=== PATIENT | male | born 1975 | race Two or more races ===

== ENCOUNTER 2016-12-11 12:13 | Inpatient (IN) | payer OTHER ==
[2016-12-11] VITALS (22 sets, daily range): BP systolic 107–198; BP diastolic 61–131
[~2016-12-11] VITALS: Ht 170.2 cm; Wt 74.2 kg
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
[2016-12-11] MEDS ORDERED: IV NS 0.9% 1,000 ML BAG IV ONE (12:30)
--- NOTE | 2016-12-11 12:30 | NUR ---
PT IS INTUBATED FOR AIRWAY PROTECTION. INTUBATED BY MARK SANCHEZ WITH 7.5 MM ETT SECURED @ 23 CM CORNER OF THE LIPS. CO2 DETECTOR CHANGED IN GOLD COLOR. CLEAR BILATERAL BREATH SOUNDS WITH SYMMETRICAL CHEST RISE EACH MANUAL RESUSCITATION. APPEARS MOISTURE CONDENSATION IN ETT. VENT PARAMETERS BELOW SET PER RT DRIVEN PROTOCOL: AC 16 VT 500 FIO2 60% PEEP +5 Addendum: 12/11/16 at 1255 by NASEEM FUNES RT Amended: Links added.
--- NOTE | 2016-12-11 12:30 | NUR ---
MECH VENT 7.5 ETT @23 CM . C 16 TV 500 FIO2 60% PEEP +5
[2016-12-11 12:52] LABS: BASOPHILS # (AUTO) 0.3 /CMM (0.0-0.2); BASOPHILS % (AUTO) 2.3 % (0.0-2.0); EOSINOPHILS # (AUTO) 0.1 /CMM (0.0-0.7); EOSINOPHILS % (AUTO) 0.9 % (0.0-6.0); HEMATOCRIT 41 % (39-51); HEMOGLOBIN 13.5 g/dL (13.5-17.5); LYMPHOCYTES # (AUTO) 4.4 /CMM (0.8-4.8); LYMPHOCYTES % (AUTO) 33.3 % (20.0-44.0); MEAN CORPUSCULAR HEMOGLOBIN 26 PG (26.0-33.0); MEAN CORPUSCULAR HGB CONC 33 g/dl (31.0-36.0); MEAN CORPUSCULAR VOLUME 80 fL (80-96); MONOCYTES # (AUTO) 0.4 /CMM (0.1-1.30); MONOCYTES % (AUTO) 2.9 % (2.0-12.0); NEUTROPHILS % (AUTO) 60.6 % (43.0-81.0); PLATELET COUNT (AUTO) 361 /CMM (150-450); RDW COEFFICIENT OF VARIATION 13.4 (11.5-15.0); RED BLOOD CELL COUNT(AUTO) 5.17 MIL/uL (4.5-6.0); WHITE BLOOD COUNT (AUTO) 13.2 K/uL (4.3-11.0)
[2016-12-11] MEDS ORDERED: ETOMIDATE 2 MG/ML VIAL IV ONE (13:00)
[2016-12-11] MEDS ORDERED: PROPOFOL 100 ML IV ONE (13:00)
[2016-12-11] MEDS ORDERED: ROCURONIUM BROMIDE 100 MG/10 ML VIAL IV ONE (13:00)
[2016-12-11 13:01] LABS: INR 1.07 (0.87-1.13); PROTHROMBIN TIME 11.1 SECS (9.5-12.7)
[2016-12-11 13:03] LABS: ALANINE AMINOTRANSFERASE 24 U/L (12-78); ALBUMIN 2.8 g/dL (3.4-5.0); ALKALINE PHOSPHATASE 57 U/L (46-116); ASPARTATE AMINOTRANSFERASE 28 U/L (15-37); BILIRUBIN,TOTAL 0.4 mg/dL (0.2-1.0); CALCIUM, SERUM 7.8 mg/dL (8.5-10.1); CARBON DIOXIDE 20 mmol/L (21-32); CHLORIDE 110 mmol/L (98-107); CREATININE 0.9 mg/dL (0.6-1.3); GFR 93 mL/min (>60); GLUCOSE 292 mg/dL (74-106); SODIUM SERUM 142 mmol/L (136-145); TOTAL PROTEIN, SERUM 5.5 g/dL (6.4-8.2); UREA NITROGEN, BLOOD 15 mg/dL (7-18)
[2016-12-11 13:05] LABS: TROPONIN I < 0.017 ng/mL (0.00-0.056)
[2016-12-11 13:11] LABS: POTASSIUM 2.1 mmol/L (3.5-5.1)
[2016-12-11] MEDS ORDERED: FENTANYL PF 100MCG/2ML AMPUL IV STA (13:28)
--- NOTE | 2016-12-11 13:28 | NUR ---
urine sample collected, send to lab.
[2016-12-11 13:29] LABS: LACTIC ACID 4.1 mmol/L (0.4-2.0)
[2016-12-11] MEDS ORDERED: FENTANYL PF 100MCG/2ML AMPUL ONE (13:29)
[2016-12-11] MEDS ORDERED: MIDAZOLAM HCL 2 MG/2ML VIAL ONE (13:29)
[2016-12-11] MEDS ORDERED: MIDAZOLAM HCL 2 MG/2ML VIAL IV ONE (13:30)
[2016-12-11] MEDS ORDERED: CEFEPIME 1 GM in IV D5W 50 ML IV ONE (13:30)
[2016-12-11] MEDS: POTASSIUM CL. PREMIX PERIPHER. 50 ML IV SCH ×6 (13:30→17:33)
[2016-12-11] MEDS ORDERED: VANCOMYCIN 1 GM in IV D5W 250 ML IV ONE (13:30)
--- NOTE | 2016-12-11 13:30 | NUR ---
PT TAKEN TO CT SCAN VIA GURNEY VIA ACLS PROTOCOL RN AND RT WITH PT.
[2016-12-11 13:32] LABS: APPEARANCE,URINE Clear (CLEAR); BILIRUBIN,URINE Negative (NEGATIVE); BLOOD, URINE Negative Ery/uL (NEGATIVE); COLOR,URINE Yellow (YELLOW); KETONES,URINE Negative (NEGATIVE); LEUKOCYTE ESTERASE ,URINE Negative (NEGATIVE); NITRITE, URINE Negative (NEGATIVE); PH,URINE 5.5 (5.0-8.0); PROTEIN,URINE 30 mg/dl (NEGATIVE); UGLUCOSE 250 MG/DL mg/dL (NEGATIVE); UROBILINOGEN,URINE 0.2 EU/dL (0.2)
[2016-12-11 13:41] LABS: ADD URINE CULTURE NO; BACTERIA,URINE Rare /HPF (None Seen); RBC,URINE 0-2 /HPF (0-2); SQUAMOUS EPITHELIAL CELL,UR Rare /HPF (None Seen); WBC,URINE 0-2 /HPF (0-3)
--- NOTE | 2016-12-11 13:48 | NUR ---
PAGED MANAGING CONSULTANT TUTU FINCH
[2016-12-11] MEDS ORDERED: DEXAMETHASONE SOD PHOSPHATE 10 MG/ML VIAL IV STA (14:02)
[2016-12-11] MEDS ORDERED: POTASSIUM CL. PREMIX PERIPHER. 50 ML ONE (14:20)
--- NOTE | 2016-12-11 14:21 | NUR ---
GAVE REPORT TO DWAIN HARDING ICU [address] DR MCKINNEY ADMITTING. TRANSPORT VIA ACLS PROTOCOL W RT AND RN
[2016-12-11] MEDS ORDERED: FAMOTIDINE/PF INJ 20 MG/2 ML VIAL IV STA (14:24)
[2016-12-11 14:27] LABS: ABG BASE EXCESS -6.9 mmol/L; ABG OXYGEN SATURATION 98.4 % (92.0-98.5); ABG PCO2 43.6 mmHg (35.0-45.0); ABG PH 7.273 (7.350-7.450); ABG PO2 314.1 mmHg (75.0-100.0); ABG TOTAL HEMOGLOBIN 12.7 G/dL (13.5-18.0); AaDO2 65.7 mmHg; COHb 0.3 % (0.5-1.5); MetHb 0.3 % (0.0-1.5); O2Hb 97.8 % (94.0-97.0); PEEP,BG 5 cm H2O; SITE, ABG Right Femoral; VT, ABG 500 mL
[2016-12-11] MEDS ORDERED: EPINEPHRINE (1:1000) MDV 30 MG/30ML VIAL SUBCUT ONE (14:30)
[2016-12-11] MEDS ORDERED: diphenhydrAMINE HCL 50 MG/ML VIAL IV ONE (14:30)
[2016-12-11] MEDS ORDERED: FAMOTIDINE/PF INJ 40 MG in IV D5W 250 ML IV ONE (14:30)
--- NOTE | 2016-12-11 14:35 | NUR ---
ICU/RN: PT RECEIVED VIA GURNEY, INTUBATED, ON DIPRIVAN 15 MCG/MIN, PT AWAKE, GAG REFLEX PRESENT, ATTEMPTING TO SELF EXTUBATE AND PULL LINES. TRANSFERRED TO BED; SKIN AX PERFORMED, NO BEE STINGER REMAINS ON PT. L SIDED SWELLING NOTED WITH 2 PINPOINT SCABS NOTED AROUND L EYE. ANGIOEDEMA NOTED. AIRWAY CLEARED OF THICK CLEAR SECRETIONS. FOR FULL NSG ASSESSMENT REFER TO FLOWSHEET. MARCELLA FINCH NP PAGED FOR ORDERS.
--- NOTE | 2016-12-11 14:42 | NUR ---
DECREASED FIO2 FROM 60% TO 40% DUE TO PAO2 314MMHG. Addendum: 12/11/16 at 1448 by NASEEM FUNES RT Amended: Links added.
--- NOTE | 2016-12-11 14:48 | NUR ---
TRANSFERRED FROM ER#5 TO ICU#257 PT USED SAME [facility] VENT WITH ALARMS ON AND AUDIBLE. VENT PLUGGED INTO RED OUTLET wITH AMBUBAG @ BEDSIDE. Addendum: 12/11/16 at 1449 by NASEEM FUNES RT Amended: Links added.
[2016-12-11] MEDS ORDERED: PROPOFOL 100 ML IV PRN (15:30)
[2016-12-11] MEDS ORDERED: Sodium Bicarbonate 100 MEQ in IV D5W 1,000 ML IV PRN (15:30)
[2016-12-11] MEDS ORDERED: IV SET PRIMARY PUMP SET 1 EA INFUS.SET MC ONE ×2 (15:31→22:33)
[2016-12-11 15:54] LABS: CANNABINOID, URINE NEGATIVE (NEGATIVE); PHENCYCLIDINE SCREEN,URINE NEGATIVE (NEGATIVE)
--- NOTE | 2016-12-11 16:25 | NUR ---
ICU/RN: MARCELLA FINCH, TELEHEALTH COORDINATOR AT THE BEDSIDE. UPDATED ON PT STATUS, PER TELEHEALTH COORDINATOR OK TO CONTINUE ER POTASSIUM REPLACEMENT ORDERS. LABS AND IMAGING DISCUSSED. NEW ORDERS NOTED AND CARRIED OUT
[2016-12-11] MEDS: PROPOFOL 100 ML IV PRN ×3 (16:28→22:55)
[2016-12-11] MEDS ORDERED: PANTOPRAZOLE 40 MG VIAL IV SCH (16:30)
[2016-12-11] MEDS ORDERED: ONDANSETRON HCL/PF 4 MG/2 ML VIAL IVP PRN (16:30)
[2016-12-11] MEDS ORDERED: MAG HYDROX/AL HYDROX/SIMETH 30 ML UDC PO PRN (16:30)
[2016-12-11] MEDS ORDERED: ACETAMINOPHEN 325 MG TABLET PO PRN (16:30)
[2016-12-11] MEDS ORDERED: DEXTROSE 50%-WATER 50 ML DISP.SYRIN IV PRN (16:30)
[2016-12-11] MEDS ORDERED: HYDROCODONE/APAP 5/325MG 1 EACH TABLET PO PRN (16:30)
[2016-12-11] MEDS ORDERED: ENOXAPARIN SODIUM 40 MG/0.4 ML DISP.SYRIN SQ SCH ×2 (16:30→21:00)
[2016-12-11] MEDS ORDERED: MAGNESIUM HYDROXIDE 30 ML UDC PO PRN (16:30)
[2016-12-11] MEDS ORDERED: ZOLPIDEM TARTRATE 5 MG TABLET PO PRN (16:30)
[2016-12-11] MEDS: methylPREDNISolone SOD SUCC 40 MG/ML VIAL IV SCH (16:44)
[2016-12-11] MEDS: IV NS 0.9% 1,000 ML IV PRN ×2 (16:44→22:55)
[2016-12-11] MEDS: BLOOD SUGAR DIAGNOSTIC 1 EACH STRIP IN SCH ×2 (17:00→23:00)
--- NOTE | 2016-12-11 18:51 | NUR ---
Patient was admitted as Alex Kline intubated/vent ICU status. Met with patient Madhuri [phone] and dtr Lynette [phone]. Patient demographic info was updated, prior to admission, patient was ambulatory and independent with adl's. He lives locally with his family. He works in [employer], his family are involved and supportive. We will assess for dc planning needs when stable. Addendum: 12/11/16 at 1852 by ART LEOS RN Amended: Links added.
--- NOTE | 2016-12-11 19:15 | NUR ---
COMMERCIAL UNDERWRITER RCD PT W/DX ANAPHYLACTIC SHOCK; PT IS SEDATED ON DIPRIVAN 60 MCG/KG/MIN ON BL SOFT WRIST RESTRAINTS; PT IS NOTED TO BE WAKING UP AND NOT FOLLOWING DIRECTION TO NOT PULL ET TUBE AND LINES. NSR ON MONITOR. LUO CATHETER DRAINING YELLOW CLEAR URINE. RIGHT NARE NG TUBE CLAMPED. RIGHT IJ W/NS @ 150 ML/HR. RFA 18 G PATENT AND FLUSHING WELL. PT IS NPO. HOB ELEVATED. BED LOCKED AND IN LOW POSITION. CONTINUE TO MONITOR.
--- NOTE | 2016-12-11 19:15 | NUR ---
ICU/RN: PT IN BED, EYES CLOSED, AROUSABLE BY LIGHT PAIN, SEDATED ON DIPRIVAN INFUSING INTO R IJ, VENT SET TO ORDERED SETTINGS, TOLERATING WELL. DRESSING C/D/I, NO BLEEDING NOTED. FC DRAINING WELL TO GRAVITY. CARE ENDORSED TO PM RN FOR MANDY.
--- NOTE | 2016-12-11 19:25 | NUR ---
ICU/RN: PT SITTING IN BED, NO S/S ACUTE DISTRESS, BREATHING EVEN AND UNLABORED. TOLERATED DINNER WELL, ATE 75% OF MEAL. MARLENE ML PATENT AND INTACT. CARE ENDORSED TO PM RN FOR MANDY. Addendum: 12/11/16 at 1926 by SOUMYA CELESTIN RN WRONG ENTRY
--- NOTE | 2016-12-11 19:30 | NUR ---
PROCEDURES RN PT CONTINUES TO BE AGITATED AND ATTEMPTING TO PULL ET TUBE; DIPRIVAN INCREASED TO 80 MCG/KG/MIN. CONTINUE TO MONITOR.
[2016-12-11] MEDS: LORAZEPAM INJ 2 MG/ML VIAL IV PRN (19:54)
--- NOTE | 2016-12-11 19:55 | NUR ---
PAIN MANAGEMENT NURSE AGITATION PT AWAKE; CONTINUES REACHING FOR ET TUBE DESPITE BEING ON DIPRIVAN AT 100 MCG/KG/MIN AND BL SOFT WRIST RESTRAINTS; PT DOES NOT FOLLOW COMMANDS TO STOP PULLING LINES AND ET TUBES; ATIVAN 1 MG IV GIVEN. CONTINUE TO MONITOR.
--- NOTE | 2016-12-11 20:15 | NUR ---
RESEARCH MECHANIC AND CHILDREN AT BEDSIDE; UPDATED ON PT CONDITION AND INFORMED THEM OF INCIDENT WITH PREVIOUS VISITOR. CONTINUE TO MONITOR.
[2016-12-11] MEDS: INSULIN REGULAR, HUMAN 100 UNIT/ML 3 ML VIAL SQ PRN (23:01)
--- NOTE | 2016-12-11 23:08 | NUR ---
THIRD STEEL POURER PT NOTED TO BE WAKING UP AGAIN DESPITE BEING ON DIPRIVAN AT 100 MCG/KG/MIN; BL SOFT WRIST RESTRAINTS REMAIN IN PLACE FOR SAFETY. CONTINUE TO MONITOR.
[2016-12-12] VITALS (58 sets, daily range): BP systolic 102–129; BP diastolic 52–89
[2016-12-12] MEDS: PROPOFOL 100 ML IV PRN ×10 (01:46→21:17)
[2016-12-12 04:39] LABS: BASOPHILS % (AUTO) 0.1 % (0.0-2.0); HEMATOCRIT 41 % (39-51); HEMOGLOBIN 12.8 g/dL (13.5-17.5); LYMPHOCYTES # (AUTO) 0.8 /CMM (0.8-4.8); LYMPHOCYTES % (AUTO) 5.3 % (20.0-44.0); MEAN CORPUSCULAR HEMOGLOBIN 26 PG (26.0-33.0); MEAN CORPUSCULAR HGB CONC 31 g/dl (31.0-36.0); MEAN CORPUSCULAR VOLUME 83 fL (80-96); MONOCYTES # (AUTO) 0.3 /CMM (0.1-1.30); MONOCYTES % (AUTO) 2.4 % (2.0-12.0); NEUTROPHILS # (AUTO) 13.4 /CMM (1.8-8.9); NEUTROPHILS % (AUTO) 92.2 % (43.0-81.0); PLATELET COUNT (AUTO) 232 /CMM (150-450); RDW COEFFICIENT OF VARIATION 14.7 (11.5-15.0); RED BLOOD CELL COUNT(AUTO) 4.87 MIL/uL (4.5-6.0); WHITE BLOOD COUNT (AUTO) 14.5 K/uL (4.3-11.0)
[2016-12-12 05:20] LABS: CALCIUM, SERUM 7.8 mg/dL (8.5-10.1); CREATININE 0.5 mg/dL (0.6-1.3); MAGNESIUM 1.8 mg/dL (1.8-2.4); PHOSPHORUS 4.2 mg/dL (2.5-4.9); POTASSIUM 4.3 mmol/L (3.5-5.1)
[2016-12-12] MEDS: IV NS 0.9% 1,000 ML IV PRN ×3 (06:11→18:37)
[2016-12-12] MEDS: BLOOD SUGAR DIAGNOSTIC 1 EACH STRIP IN SCH ×4 (06:11→23:37)
--- NOTE | 2016-12-12 07:10 | NUR ---
RN INITIAL NOTES RECEIVED PT SEDATED. INTUBATED, ON MECHANICAL VENT WITH FF SETTINGS: AC16, TV500, FI02 35%, PEEP+5. HON ELEVATED. NO RESPIRATORY DISTRESS NOTED. NO SOB NOTED. NO SIGNS OF PAIN NOTED. NGT, RIGHT NARE IN PLACE. RIJ AND RFA #[address] ON DIPRIVAN AT 100MCG/KG/MIN AND NS AT 150ML/HR. BILATERAL WRIST RESTRAINTS IN PLACE. NO CIRCULATORY IMPAIRMENT NOTED. GOOD CAPILLARY REFILL NOTED. FC IN PLACE. NO HEMATURIA NOR SEDIMENTS NOTED. BLE ELEVATED. WILL CONTINUE TO MONITOR
[2016-12-12] MEDS: methylPREDNISolone SOD SUCC 40 MG/ML VIAL IV SCH ×3 (08:28→16:18)
[2016-12-12 08:48] LABS: ABG BASE EXCESS -1.6 mmol/L; ABG OXYGEN SATURATION 98.2 % (92.0-98.5); ABG PCO2 38.2 mmHg (35.0-45.0); ABG PH 7.396 (7.350-7.450); ABG TOTAL HEMOGLOBIN 12.8 G/dL (13.5-18.0); AaDO2 55.1 mmHg; COHb 0.5 % (0.5-1.5); MetHb 0.4 % (0.0-1.5); O2Hb 97.3 % (94.0-97.0); PEEP,BG 5 cm H2O; SITE, ABG Right Radial; VT, ABG 500 mL
[2016-12-12] MEDS ORDERED: diphenhydrAMINE HCL 50 MG/ML VIAL IV PRN (10:30)
[2016-12-12] MEDS: FAMOTIDINE/PF INJ 20 MG/2 ML VIAL IV SCH ×2 (10:39→21:03)
[2016-12-12] MEDS: diphenhydrAMINE HCL 50 MG/ML VIAL IV SCH ×3 (10:39→21:06)
[2016-12-12] MEDS ORDERED: SECONDARY IV SET 1 EA INFUS.SET MC ONE (11:33)
[2016-12-12] MEDS: LORAZEPAM INJ 2 MG/ML VIAL IV PRN (11:38)
[2016-12-12] MEDS: CLINDAMYCIN 300 MG in IV D5W 50 ML IV SCH ×3 (12:22→23:35)
[2016-12-12] MEDS ORDERED: IV SET PRIMARY PUMP SET 1 EA INFUS.SET MC ONE ×2 (15:02→20:52)
--- NOTE | 2016-12-12 18:50 | NUR ---
RN CLOSING NOTES PT REMAINS INTUBATED. ON MECH VENT. TOLERATING WELL. NO RESPIRATORY DISTRESS NOTED. NO SIGNS OF PAIN NOTED. IV LINES IN PLACE. ON DIPRIVAN AT 100MCG/KG/MIN. TOLERATING IVF WELL. FC IN PLACE. ADEQUATE OUTPUT NOTED. KEPT CLEAN AND DRY. REPOSITIONED Q2. BLE ELEVATED. WILL ENDORSE FOR CONTINUITY OF CARE.
[2016-12-12] MEDS: ENOXAPARIN SODIUM 40 MG/0.4 ML DISP.SYRIN SQ SCH (21:04)
[2016-12-12] MEDS: INSULIN REGULAR, HUMAN 100 UNIT/ML 3 ML VIAL SQ PRN (23:36)
[2016-12-13] VITALS (36 sets, daily range): BP systolic 104–126; BP diastolic 63–81
[2016-12-13] MEDS: PROPOFOL 100 ML IV PRN ×4 (00:02→07:52)
[2016-12-13] MEDS: IV NS 0.9% 1,000 ML IV PRN ×4 (01:53→23:43)
--- NOTE | 2016-12-13 03:59 | NUR ---
MEDICAL SALES REPRESENTATIVE - RECEIVED PT. ON DIPRIVAN GTT. AT 100CC/HR. PT. CONT. AT SAME RATE. PT. IS VENTED & ON BILAT. SOFT WRIST RESTRAINTS. PT. RECEIVED A COMPLETE BEDBATH AT ONE AM. LUO CATH TO GRAVITY, W/GOOD UOP. MN BS WAS #129-NOT COVERED. RFA-PIC & RIJ-TL HAVE PORTS-ALL PATENT TO FLUSH. 0.9%NS IS INFUSING AT 150CC/HR.VIA COOPER PUMPS. RT. PEREZ NGT HAS GOOD PLACEMENT. SKIN INTACT. HEART MONITOR SHOWS SBP'S 104-120'S & SR/ST/NO ECTOPY. CHILO FROM MICRO/LAB PHONED IN PRELIM. RESULT:ANAEROBIC BC DONE 12/10/16 SHOWS GRAM + COCCI. NOTED. CONT.POC.
[2016-12-13] MEDS: diphenhydrAMINE HCL 50 MG/ML VIAL IV SCH (04:22)
[2016-12-13 05:01] LABS: BASOPHILS % (AUTO) 0.3 % (0.0-2.0); HEMATOCRIT 36 % (39-51); HEMOGLOBIN 11.6 g/dL (13.5-17.5); LYMPHOCYTES # (AUTO) 1.5 /CMM (0.8-4.8); LYMPHOCYTES % (AUTO) 13.4 % (20.0-44.0); MEAN CORPUSCULAR HEMOGLOBIN 26 PG (26.0-33.0); MEAN CORPUSCULAR HGB CONC 32 g/dl (31.0-36.0); MEAN CORPUSCULAR VOLUME 82 fL (80-96); MONOCYTES # (AUTO) 0.5 /CMM (0.1-1.30); MONOCYTES % (AUTO) 4.6 % (2.0-12.0); NEUTROPHILS # (AUTO) 9.3 /CMM (1.8-8.9); NEUTROPHILS % (AUTO) 81.7 % (43.0-81.0); PLATELET COUNT (AUTO) 207 /CMM (150-450); RDW COEFFICIENT OF VARIATION 15.2 (11.5-15.0); RED BLOOD CELL COUNT(AUTO) 4.39 MIL/uL (4.5-6.0); WHITE BLOOD COUNT (AUTO) 11.4 K/uL (4.3-11.0)
[2016-12-13 05:15] LABS: CALCIUM, SERUM 7.6 mg/dL (8.5-10.1); CREATININE 0.5 mg/dL (0.6-1.3); MAGNESIUM 2.1 mg/dL (1.8-2.4)
[2016-12-13] MEDS: INSULIN REGULAR, HUMAN 100 UNIT/ML 3 ML VIAL SQ PRN (05:34)
[2016-12-13] MEDS: CLINDAMYCIN 300 MG in IV D5W 50 ML IV SCH ×4 (05:34→23:43)
[2016-12-13] MEDS: BLOOD SUGAR DIAGNOSTIC 1 EACH STRIP IN SCH ×3 (05:35→17:21)
[2016-12-13] MEDS ORDERED: IV SET PRIMARY PUMP SET 1 EA INFUS.SET MC ONE (07:20)
--- NOTE | 2016-12-13 07:31 | NUR ---
SUPERVISOR CIGAR PROCESSING NOTE RCVD PT SEDATED ON DIPRIVAN, PUPILS PERRL, SR ON TELE. TOLERATING ORDERED VENT SETTINGS ETT 7.5 23 AT LIP. RIGHT NARE NGTUBE PLACEMENT VERIFIED BY AUSCULTATION. LUO DRAINING CLEAR, YELLOW URINE. IV SITES C/D/I/PATENT, IVF INFUSING. NO S/O INFILTRATION OR PHLEBITIS OBSERVED UPON FLUSHING. WILL CONTINUE TO MONITOR PT FOR SAFETY AND COMFORT. CALL LIGHT WITHIN REACH. BED IN LOW AND LOCKED POSITION. Addendum: 12/13/16 at 0852 by JEAN MCKEON RN SEDATION VACATION STARTED WILL CONTINUE TO MONITOR PT.
[2016-12-13] MEDS: FAMOTIDINE/PF INJ 20 MG/2 ML VIAL IV SCH (08:00)
[2016-12-13] MEDS: methylPREDNISolone SOD SUCC 40 MG/ML VIAL IV SCH ×3 (08:00→16:06)
--- NOTE | 2016-12-13 10:44 | NUR ---
WOOD CABINETMAKER NOTE DR. DEE AT BEDSIDE. PT AWAKE AND ALERT SHOWING NO S/O DISTRESS OR C/O PAIN. OFF SEDATION AT THIS TIME. WEANING STARTED PT PLACED ON CPAP MODE. WILL CONTINUE TO MONITOR.
[2016-12-13 11:14] LABS: ABG BASE EXCESS -1.3 mmol/L; ABG OXYGEN SATURATION 97.9 % (92.0-98.5); ABG PCO2 35.6 mmHg (35.0-45.0); ABG PH 7.422 (7.350-7.450); ABG PO2 134.6 mmHg (75.0-100.0); ABG TOTAL HEMOGLOBIN 12.6 G/dL (13.5-18.0); AaDO2 73.6 mmHg; COHb 0.6 % (0.5-1.5); MetHb 0.6 % (0.0-1.5); O2Hb 96.7 % (94.0-97.0); SITE, ABG Right Radial; VENT MODE, BG CPAP PS 12 +5
--- NOTE | 2016-12-13 11:20 | NUR ---
RT PER DR DEE PATIENT WEANED TO EXTUBATE WITH NO DISTRESS OR SOB. PATIENT ON ROOM AIR SPO2 96%. AWAKE, ALERT, FOLLOWING COMMANDS
[2016-12-13] MEDS: diphenhydrAMINE HCL 25 MG CAPSULE PO SCH ×3 (11:55→23:52)
--- NOTE | 2016-12-13 12:04 | NUR ---
[employer] SOUNDINGS GROUP LEADER NOTE PT EXTUBATED TOLERATED WELL RA SATURATION 97%. ACCUCHECK DONE 133. PT DECLINED PO INTAKE AT THIS TIME. NO COVERAGE PROVIDED. FAMILY AT BEDSIDE. PT AWAKE AND ALERT, FOLLOWING COMMANDS. NG TUBE DISCONTINUED.
--- NOTE | 2016-12-13 18:30 | NUR ---
ENDING HEAD OF STOCK NOTE PT AWAKE AND ALERT SHOWING NO S/O DISTRESS OR C/O PAIN. PT'S FAMILY AT BEDSIDE. SR ON TELE MONITOR. SATURATION >95% ON RA. LUO CATH DISCONTINUED. PT ABLE TO VOID TO URINAL WITHOUT PROBLEM. IV SITES REMAIN C/D/I/PATENT. NO S/O INFILTRATION OR PHLEBITIS OBSERVED UPON FLUSHING. PT'S CARE WILL BE ENDORSED TO TRAVELING CRANE OPERATOR RN FOR CONTINUITY OF CARE AT CHANGE OF SHIFT. PT STATES TO FEEL WEAK, FOR SAFETY PT CHOSE TO STAY IN BED FOR TODAY AND TRY TRANSFER TO CHAIR TOMORROW. WILL ENDORSE TO NIGHT RN.
[2016-12-13] MEDS: FAMOTIDINE (20 MG) 20 MG TABLET PO SCH (21:01)
[2016-12-13] MEDS: ENOXAPARIN SODIUM 40 MG/0.4 ML DISP.SYRIN SQ SCH (21:02)
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
[2016-12-14] VITALS (17 sets, daily range): BP systolic 107–132; BP diastolic 71–93
[2016-12-14] MEDS: INSULIN REGULAR, HUMAN 100 UNIT/ML 3 ML VIAL SQ PRN ×2 (00:02→05:53)
[2016-12-14 04:41] LABS: BASOPHILS % (AUTO) 0.1 % (0.0-2.0); HEMATOCRIT 37 % (39-51); HEMOGLOBIN 11.8 g/dL (13.5-17.5); LYMPHOCYTES # (AUTO) 1.9 /CMM (0.8-4.8); MEAN CORPUSCULAR HEMOGLOBIN 26 PG (26.0-33.0); MEAN CORPUSCULAR HGB CONC 32 g/dl (31.0-36.0); MEAN CORPUSCULAR VOLUME 82 fL (80-96); MONOCYTES # (AUTO) 0.4 /CMM (0.1-1.30); MONOCYTES % (AUTO) 4.7 % (2.0-12.0); NEUTROPHILS # (AUTO) 6.8 /CMM (1.8-8.9); NEUTROPHILS % (AUTO) 74.2 % (43.0-81.0); PLATELET COUNT (AUTO) 210 /CMM (150-450); RDW COEFFICIENT OF VARIATION 14.7 (11.5-15.0); RED BLOOD CELL COUNT(AUTO) 4.48 MIL/uL (4.5-6.0); WHITE BLOOD COUNT (AUTO) 9.1 K/uL (4.3-11.0)
[2016-12-14 04:58] LABS: CALCIUM, SERUM 7.5 mg/dL (8.5-10.1); CREATININE 0.5 mg/dL (0.6-1.3); PHOSPHORUS 3.2 mg/dL (2.5-4.9); POTASSIUM 3.6 mmol/L (3.5-5.1)
[2016-12-14] MEDS ORDERED: diphenhydrAMINE HCL 25 MG CAPSULE ONE (05:36)
[2016-12-14] MEDS: CLINDAMYCIN 300 MG in IV D5W 50 ML IV SCH ×3 (05:52→17:19)
[2016-12-14] MEDS: BLOOD SUGAR DIAGNOSTIC 1 EACH STRIP IN SCH ×2 (05:53)
[2016-12-14] MEDS: diphenhydrAMINE HCL 25 MG CAPSULE PO SCH ×3 (05:53→17:18)
--- NOTE | 2016-12-14 06:00 | NUR ---
MOBILE GAME ENGINEER - PT. WAS DROWSY, VERY WEAK THRU-OUT THE NIGHT. RN HAD TO HOLD GLASS OF H20 FOR PT. & ASSIST W/EATING MEDS. HE COULDN'T HOLD THE GLASS - WEAK SPUDDER BILAT. QATARI SPEAKING ONLY. WILL-MT ASSISTED W/INTERPRETING. SKIN PIC TAKEN & DOCUMENTED OF PT'S NECK/BEE STINGS. PT.DID WELL ON R/A, W/O2 SATS >95%. HEART MONITOR DID SHOW SB/50 AT LOWEST. SBP'S WERE IN THE TEENS. AFEBRILE. PT. IS USING URINAL-GOOD UOP. REPORT ENDORSED TO JEAN Arechiga CONT. POC.
--- NOTE | 2016-12-14 07:45 | NUR ---
INITIAL WINDOWS AND DOORS INSTALLER NOTE RCVD PT SLEEPING IN BED AROUSED TO LIGHT TOUCH AND NAME. SB WHILE SLEEPING 50'S UPON AWAKENING HR 83. BREATHING WELL ON RA. NO S/O DISTRESS OBSERVED OR PAIN REPORTED. PT VOIDING TO URINAL WELL. TOLERATING ORDERED SOFT DIET. IV SITES C/D/I/PATENT. NO S/O INFILTRATION OR PHLEBITIS OBSERVED UPON FLUSHING. WILL CONTINUE TO MONITOR PT FOR SAFETY AND COMFORT. CALL LIGHT WITHIN REACH. BED IN LOW AND LOCKED POSITION.
[2016-12-14] MEDS: methylPREDNISolone SOD SUCC 40 MG/ML VIAL IV SCH ×3 (08:01→17:19)
[2016-12-14] MEDS: IV NS 0.9% 1,000 ML IV PRN ×2 (08:01→17:24)
[2016-12-14] MEDS: FAMOTIDINE (20 MG) 20 MG TABLET PO SCH ×2 (08:01→21:21)
--- NOTE | 2016-12-14 11:08 | NUR ---
WRAPPING MACHINE TENDER NOTE PT RESTING IN BED ENCOURAGED TO GET OOB FOR LUNCH. PT STATES THAT HE STILL FEELS WEAK AND DOESN'T THINK HE'LL BE ABLE TO DO THAT. TUTU NARANJO IN UNIT PT HELEN PÉREZ.
--- NOTE | 2016-12-14 14:06 | NUR ---
ICU TRANSFER NOTE PT TRANSFERRED TO [facility] ROOM [id number] REPORT CALLED IN AND GIVEN TO MEAGHAN MARTINEZ. PT AWAKE AND ALERT, SHOWING NO S/O DISTRESS OR C/O PAIN. PT'S AT BEDSIDE. PT TRANSPORTED VIA WHEELCHAIR. RIGHT IJ LINE DISCONTINUED ORDERED. PRESSURE DRESSING APPLIED. NO S/O BLEEDING OBSERVED. THIS WAS ENDORSED TO MEAGHAN MARTINEZ TO MONITOR FOR BLEEDING. PER BELONGINGS WERE TAKEN HOME. NO BELONGINGS FOUND AT BEDSIDE.
--- NOTE | 2016-12-14 14:15 | NUR ---
MS/RN Patient received Patient received from ICU nurse. A/O X4, Romansh speaking, vital signs stable, denies any pain or discomfort. All needs attended at this time, oriented to new surroundings, will continue to monitor.
--- NOTE | 2016-12-14 18:31 | NUR ---
MS/RN End note No shortness of breath or difficulty maintaining patent airway. Saturation remains >94%. Denies pain or discomfort. Family at bedside and updated as to plan of care. All needs attended at this time, will endorse to restaurant shift leader.
--- NOTE | 2016-12-14 19:45 | NUR ---
MS/RN NOTES RECEIVED PT. SITTING UP IN BED. AWAKE, ALERT AND ORIENTED X4. BREATHING EVEN AND UNLABORED ON ROOM AIR. NO SOB, RESPIRATORY DISTRESS OR COMPLAINTS OF PAIN NOTED AT THIS TIME. PT. WITH RIGHT FOREARM 18 GAUGE PERIPHERAL IV PRESENT, PATENT AND INTACT ADMINISTERING TO PT. NS @ 75ML/HR. BED IN LOWEST POSITION, CALL LIGHT WITHIN REACH, WILL CONTINUE TO MONITOR.
[2016-12-14] MEDS: ENOXAPARIN SODIUM 40 MG/0.4 ML DISP.SYRIN SQ SCH (21:22)
[2016-12-15] MEDS: diphenhydrAMINE HCL 25 MG CAPSULE PO SCH ×3 (00:18→11:31)
[2016-12-15] MEDS: CLINDAMYCIN 300 MG in IV D5W 50 ML IV SCH ×3 (00:19→11:31)
[2016-12-15] MEDS ORDERED: IV NS 0.9% 1,000 ML ONE (06:19)
[2016-12-15] MEDS: IV NS 0.9% 1,000 ML IV PRN (06:32)
[2016-12-15 06:43] LABS: BASOPHILS % (AUTO) 0.2 % (0.0-2.0); EOSINOPHILS % (AUTO) 0.1 % (0.0-6.0); HEMATOCRIT 38 % (39-51); HEMOGLOBIN 11.9 g/dL (13.5-17.5); LYMPHOCYTES # (AUTO) 2.1 /CMM (0.8-4.8); LYMPHOCYTES % (AUTO) 25.3 % (20.0-44.0); MEAN CORPUSCULAR HEMOGLOBIN 26 PG (26.0-33.0); MEAN CORPUSCULAR HGB CONC 32 g/dl (31.0-36.0); MEAN CORPUSCULAR VOLUME 82 fL (80-96); MONOCYTES # (AUTO) 0.4 /CMM (0.1-1.30); MONOCYTES % (AUTO) 5.5 % (2.0-12.0); NEUTROPHILS # (AUTO) 5.7 /CMM (1.8-8.9); NEUTROPHILS % (AUTO) 68.9 % (43.0-81.0); PLATELET COUNT (AUTO) 223 /CMM (150-450); RDW COEFFICIENT OF VARIATION 14.2 (11.5-15.0); RED BLOOD CELL COUNT(AUTO) 4.58 MIL/uL (4.5-6.0); WHITE BLOOD COUNT (AUTO) 8.2 K/uL (4.3-11.0)
--- NOTE | 2016-12-15 06:46 | NUR ---
MS/RN NOTES PT. LYING IN BED RESTING. BREATHING EVEN AND UNLABORED ON ROOM AIR. NO SOB, RESPIRATORY DISTRESS OR COMPLAINTS OF PAIN NOTED AT THIS TIME AND THROUGHOUT SHIFT. PT. WITH RIGHT FOREARM 18 GAUGE PERIPHERAL IV PRESENT, PATENT AND INTACT ADMINISTERING TO PT. NS @ 75ML/HR. ALL PT. NEEDS MET. BED IN LOWEST POSITION, CALL LIGHT WITHIN REACH, WILL ENDORSE TO DAYSHIFT NURSE FOR CONTINUITY OF CARE.
[2016-12-15 06:53] LABS: CALCIUM, SERUM 7.9 mg/dL (8.5-10.1); CREATININE 0.5 mg/dL (0.6-1.3); PHOSPHORUS 3.6 mg/dL (2.5-4.9); POTASSIUM 3.9 mmol/L (3.5-5.1)
--- NOTE | 2016-12-15 07:30 | NUR ---
MS RN AM NOTES RECEIVED PT. SITTING UP IN BED. AWAKE, ALERT AND ORIENTED X4. BREATHING EVEN AND UNLABORED ON ROOM AIR. NO SOB, RESPIRATORY DISTRESS OR COMPLAINTS OF PAIN NOTED AT THIS TIME. RIGHT FOREARM 18 GAUGE PERIPHERAL IV PRESENT WITH NS AT 75 ML/HR RUNNING, SITE CLEAR. AMBULATORY, SEE NURSING FLOWSHEET FOR SKIN ISSUES. BED IN LOWEST POSITION, CALL LIGHT WITHIN REACH, WILL CONTINUE TO MONITOR.
[2016-12-15 08:00] VITALS: BP 119/73
[2016-12-15] MEDS: FAMOTIDINE (20 MG) 20 MG TABLET PO SCH (08:11)
[2016-12-15] MEDS: methylPREDNISolone SOD SUCC 40 MG/ML VIAL IV SCH ×2 (08:11→13:05)
--- NOTE | 2016-12-15 09:30 | NUR ---
MS RN NOTES ADMINISTERED DUE MEDS.
--- NOTE | 2016-12-15 11:32 | NUR ---
MS RN NOTES STARTED CLEOCIN IV.
[2016-12-15] MEDS ORDERED: PRED20TA GT (12:42)
[2016-12-15] MEDS ORDERED: PRED20TA MT (14:43)
--- NOTE | 2016-12-15 15:26 | NUR ---
MS RN NOTES PATIENT DISCHARGED TO HOME TODAY PER MD IN STABLE CONDITION. PROVIDED DC INSTRUCTIONS, HEALTH TEACHINGS AND PRESCRIPTION. PATIENT TO FOLLOW UP WITH PCP IN 1-2 WEEKS AND WILL MAKE APPOINTMENT. RT FOREARM IV ACCESS REMOVED. NO BLEEDING. DRESSING IN PLACE. ALL BELONGINGS CHECKED AND RETURNED. ALL PAPERWORKS SIGNED. PATIENT TO GO HOME ACCOMPANIED BY AND DAUGHTER VIA TAXI.
--- NOTE | 2016-12-15 15:45 | NUR ---
MS RN NOTES PATIENT ACCOMPANIED BY [place] TO LOBBY VIA WHEELCHAIR. PATIENT'S AND DAUGHTER WITH THEM. WILL GO HOME VIA TAXI.
== END 2016-12-15 15:48 | disposition home or self-care (01) | DRG 208 ==
LOC: ER 12:16 → EDBD 13:10 → ICU 13:10 → MEDSG2 12-14 14:10
PROVIDERS: ADMIT Family Medicine; ATTEND Nurse Practitioner Acute Care
PROC: 02HV33Z Insertion of Infusion Device into Superior Vena Cava, Percutaneous Approach (ICD-10-PCS; principal; 2016-12-11)
PROC: 0BH17EZ Insertion of Endotracheal Airway into Trachea, Via Natural or Artificial Opening (ICD-10-PCS; principal; 2016-12-11)
PROC: 5A1945Z Respiratory Ventilation, 24-96 Consecutive Hours (ICD-10-PCS; principal; 2016-12-11)
PROC: B548ZZA Ultrasonography of Superior Vena Cava, Guidance (ICD-10-PCS; principal; 2016-12-11)
DX: J96.00 Acute respiratory failure, unspecified whether with hypoxia or hypercapnia (principal); G93.41 Metabolic encephalopathy; J69.0 Pneumonitis due to inhalation of food and vomit; E87.2 Acidosis; E44.1 Mild protein-calorie malnutrition; J98.11 Atelectasis; T78.2XXA Anaphylactic shock, unspecified, initial encounter; T63.441A Toxic effect of venom of bees, accidental (unintentional), initial encounter; X58.XXXA Exposure to other specified factors, initial encounter; E11.65 Type 2 diabetes mellitus with hyperglycemia; D72.829 Elevated white blood cell count, unspecified; E87.6 Hypokalemia; E88.09 Other disorders of plasma-protein metabolism, not elsewhere classified; Z68.25 Body mass index [BMI] 25.0-25.9, adult; Z91.030 Bee allergy status; I95.9 Hypotension, unspecified; F15.90 Other stimulant use, unspecified, uncomplicated
CPT/HCPCS: 31720; 36415; 36600; 70450-TC; 71010-TC; 80048-TC; 80061-TC; 80076-TC; 80305; 81000-TC; 82962-TC; 83520; 83605-TC; 83735-TC; 83880; 84100-TC; 84484-TC; 85025-TC; 85730-TC; 87040-TC; 87081-TC; 87086-TC; 94002-TC; 94003-TC; 94760-TC; 94799-TC; 97001-TC; A4606; C1751; C9113; G0480; J0171; J0692; J1200; J1650; J1815; J2060; J2250; J2920; J3010; J3370; J3480; J3490; J7030; J7060; J7070; Q0163; Z7610

== ENCOUNTER 2016-12-18 20:27 | Emergency (ER) | payer OTHER ==
[~2016-12-18] VITALS: Ht 165.1 cm; Wt 81.6 kg
[~2016-12-18 20:27] MED LIST: PRED20TA MT
[2016-12-18 20:30] VITALS: BP 127/76
--- NOTE | 2016-12-18 20:35 | NUR ---
ADVERTISING CAMPAIGN MANAGER Debra at bedside and assessed patient, seen patient with suture of removed picc line on the right neck that the patient thought a bee sting. Marsii removed suture about 2.5cm, shey well, no bleeding.
== END 2016-12-18 21:00 | disposition home or self-care (01) ==
LOC: ER 20:29
DX: T63.441A Toxic effect of venom of bees, accidental (unintentional), initial encounter (principal); Y92.89 Other specified places as the place of occurrence of the external cause; Y93.89 Activity, other specified; Y99.8 Other external cause status
CPT/HCPCS: A4606; Z7610

== ENCOUNTER 2017-01-09 07:08 | Emergency (ER) | payer OTHER ==
[~2017-01-09] VITALS: Ht 165.1 cm; Wt 75.7 kg
[2017-01-09 07:10] VITALS: BP 114/72
--- NOTE | 2017-01-09 07:20 | NUR ---
BIB , PT C/O DIARRHEA X 3 WEEKS. RR EVEN AND UNLABORED. AAO X4, AMB WITH STEADY GAIT. PT PLACED IN GOWN AND MONITOR. PENDING MD FOR EVAL.
[2017-01-09] MEDS ORDERED: IV NS 0.9% 1,000 ML IV ONE (07:30)
[2017-01-09] MEDS ORDERED: IV SET PRIMARY 1 EA INFUS.SET MC ONE (07:32)
[2017-01-09] MEDS ORDERED: IV NS 0.9% 1,000 ML ONE (07:32)
[2017-01-09 07:55] LABS: CALCIUM, SERUM 8.2 mg/dL (8.5-10.1); CREATININE 0.6 mg/dL (0.6-1.3); POTASSIUM 3.4 mmol/L (3.5-5.1)
[2017-01-09] MEDS ORDERED: POTASSIUM CHLORIDE 20 MEQ TAB.PRT.SR PO ONE ×2 (08:26→08:30)
== END 2017-01-09 08:47 | disposition other institution (70) ==
LOC: ER 07:12
DX: R19.7 Diarrhea, unspecified (principal)
CPT/HCPCS: 36415; 80048; 96360; 99284; A4606; J7030; Z7610

== ENCOUNTER 2017-05-04 10:30 | Emergency (ER) | payer OTHER ==
[~2017-05-04] VITALS: Ht 165.1 cm; Wt 81.6 kg
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
--- NOTE | 2017-05-04 10:40 | NUR ---
IV STARTED ON RFA, 18 G.
--- NOTE | 2017-05-04 10:50 | NUR ---
XRAY AT BEDSIDE
[2017-05-04 11:03] LABS: BASOPHILS % (AUTO) 0.6 % (0.0-2.0); EOSINOPHILS # (AUTO) 0.1 /CMM (0.0-0.7); EOSINOPHILS % (AUTO) 0.9 % (0.0-6.0); HEMATOCRIT 44 % (39-51); HEMOGLOBIN 14.2 g/dL (13.5-17.5); LYMPHOCYTES # (AUTO) 3.5 /CMM (0.8-4.8); MEAN CORPUSCULAR HEMOGLOBIN 27 PG (26.0-33.0); MEAN CORPUSCULAR HGB CONC 33 g/dl (31.0-36.0); MEAN CORPUSCULAR VOLUME 81 fL (80-96); MONOCYTES # (AUTO) 0.4 /CMM (0.1-1.30); MONOCYTES % (AUTO) 5.7 % (2.0-12.0); NEUTROPHILS # (AUTO) 3.7 /CMM (1.8-8.9); NEUTROPHILS % (AUTO) 47.8 % (43.0-81.0); PLATELET COUNT (AUTO) 297 /CMM (150-450); RDW COEFFICIENT OF VARIATION 15.4 (11.5-15.0); RED BLOOD CELL COUNT(AUTO) 5.35 MIL/uL (4.5-6.0); WHITE BLOOD COUNT (AUTO) 7.7 K/uL (4.3-11.0)
[2017-05-04 11:04] LABS: ALBUMIN 3.7 g/dL (3.4-5.0); BILIRUBIN,DIRECT 0.1 mg/dL (0.0-0.2); BILIRUBIN,TOTAL 0.4 mg/dL (0.2-1.0); CALCIUM, SERUM 8.2 mg/dL (8.5-10.1); CREATININE 0.8 mg/dL (0.6-1.3); POTASSIUM 3.2 mmol/L (3.5-5.1)
[2017-05-04 11:18] LABS: PROTHROMBIN TIME 10.7 SECS (9.5-12.7)
--- NOTE | 2017-05-04 11:31 | NUR ---
CALLED [facility] , I WAS THEN TRANSFERRED TO LATASHA AT [facility] AND SHE WILL CALL ME BACK TO PROVIDE ME INFORMATION OF THE PHYSICIAN SERVICE NOW DEVELOPER TO EXPEDITE MD TO MD REPORT.
--- NOTE | 2017-05-04 11:40 | NUR ---
RECEIVED CALL FROM LATASHA WITH [facility], SHE TOLD ME TO HAVE TALK WITH AT [facility], HIS NUMBER IS [phone]; CALLED MULTIPLE TIMES WITH NO ANSWER, WILL CONTINUE TO TRY
--- NOTE | 2017-05-04 11:51 | NUR ---
CALLED AT [phone], TRANSFERRED CALL TO
--- NOTE | 2017-05-04 11:52 | NUR ---
DR ZUNIGA ON PHONE WITH DR REECE AT THIS TIME
--- NOTE | 2017-05-04 12:06 | NUR ---
CALLED [facility], SPOKE WITH JONE, PRESENTED PT, FAXED OVER FACESHEET TO [phone]
--- NOTE | 2017-05-04 12:07 | NUR ---
CALLED BACK LATASHA AT [facility] TO INFORM HER THAT DID NOT ACCEPT PT, SHE GAVE ME AUTHORIZATION FOR AMBULANCE TRANSPORT #[id number], AUTHORIZATION FOR INSURANCE IS #[id number]
--- NOTE | 2017-05-04 12:10 | NUR ---
ON PHONE WITH FROM [facility]
--- NOTE | 2017-05-04 13:01 | NUR ---
CALLED [facility] FOR AN UPDATE ON PT, SAID THEY ARE STILL WAITING TO HEAR FROM THE ORTHO GROUP AND WILL CALL US BACK ONCE THEY HEAR FROM THEM
--- NOTE | 2017-05-04 13:25 | NUR ---
RECEIVED CALL FROM [facility], PT ACCEPTED TO [facility] BY , NUMBER TO GIVE REPORT IS [phone], [facility] [place] #[id number]
--- NOTE | 2017-05-04 13:29 | NUR ---
CALLED LENNY FOR TRANSPORT TO [facility], ETA [phone]
--- NOTE | 2017-05-04 13:56 | NUR ---
REPORT GIVEN TO JANINE HARDING AT [facility] FOR TRANSFER. PATIENT REMAINS IN STABLE CONDITION.
[2017-05-04 14:02] VITALS: BP 123/80
--- NOTE | 2017-05-04 14:14 | NUR ---
REPORT GIVEN TO EMT AT BEDSIDE. PATIENT STABLE FOR TRANSFER, LEFT TO [facility] VIA AMBULANCE.
== END 2017-05-04 14:15 | disposition short-term general hospital (02) ==
LOC: ER 10:32
DX: S56.922A Laceration of unspecified muscles, fascia and tendons at forearm level, left arm, initial encounter (principal); Z91.030 Bee allergy status; W26.8XXA Contact with other sharp object(s), not elsewhere classified, initial encounter; Y93.89 Activity, other specified; Y92.89 Other specified places as the place of occurrence of the external cause; Y99.9 Unspecified external cause status
CPT/HCPCS: 36415; 73090; 80048; 80076; 85025; 85730; 86850; 90471; 90715; 96361; 96365; 96375; 99285; A4606; A6403; J0690; J1170; J2270; J2405; J3010; J7030; J7060; Z7610

== ENCOUNTER 2017-05-07 18:57 | Emergency (ER) | payer OTHER ==
[~2017-05-07] VITALS: Ht 165.1 cm; Wt 74.8 kg
[2017-05-07 19:23] VITALS: BP 127/85
== END 2017-05-07 20:16 | disposition home or self-care (01) ==
LOC: ER 18:59
DX: Z48.00 Encounter for change or removal of nonsurgical wound dressing (principal)
CPT/HCPCS: 99281; A4606; A6402; Z7610; Z7502